=== PATIENT | male | born 1940 | race Caucasian/White ===

== ENCOUNTER → 2017-07-04 | Day surgery (SDC) | payer MEDICARE ==
[~2017-07-04] VITALS: Ht 165.1 cm; Wt 67.6 kg
[~2017-07-04] MED LIST: AMLO10TA2 PO; AMLO5TAB22 PO; ANAG.5 PO; ASPI-146 PO; BACITRACIN TOP OINT 15 GM TUBE ONE; BAYE325T3 PO; BUPIVACAINE/EPINEPHRINE 0.25% 50 ML VIAL ONE; CHLORHEXIDINE GLUCONATE 2 % 1 PACK (2 CLOTHS) TOPICAL PRN; COLL30OI3 TOP; DEXAMETHASONE SOD PHOS 4 MG/ML VIAL IV ONE; DO NOT ADM ANY ANTICOAGULANT DRUGS PRN; FISHCAP PO; GLYCOPYRROLATE 1 MG/5 ML SYRINGE IV PUSH ONE; HYDR500C PO; LACTATED RINGER'S 1000 ML IV PRN; LEVO50TA4 PO; LIDOCAINE HCL 1% PF 5 ML SYRINGE OTHER ONE; METO50TA PO; METOPROLOL TARTRATE 25 MG TAB PO PRN; ONDANSETRON HCL 4 MG/2 ML VIAL IV ONE; PHENYLEPH/NS 1000 MCG/10 ML SYR IV ONE; POVIDONE IODINE 5% (ANTISEPSIS KIT) 4 APPLICATIONS EACH NARE PRN; PROPOFOL 200 MG/20 ML AMP IV ONE; PROSCAP2 PO; PROSCAP5 PO; RANI150T PO; ROCURONIUM INJ 50 MG/5 ML SYRINGE IV PUSH ONE; ROSU1TAB6 PO; ROSU5 PO; SODIUM CHLORID 0.9% 500 ML IV PRN; TOPR100T15 PO; ceFAZolin 1,000 MG/NS 100 ML IV SCH; ePHEDrine/NS 25 MG/5 ML SYRINGE IV ONE; oxyCODONE/ACETAMINOPHEN 5 MG/325 MG TAB PO PRN
[2017-07-04 10:41] LABS: AUTOMATED NEUTROPHIL # 5.6 TH/MM3 (1.8-7.7); BASOPHIL # 0.2 TH/MM3 (0-0.2); BASOPHIL % 2.3 % (0.0-2.0); EOSINOPHIL # 0.1 TH/MM3 (0-0.4); EOSINOPHIL % 1.8 % (0.0-4.0); HEMATOCRIT 30.7 % (39.0-51.0); HEMOGLOBIN 10.4 GM/DL (13.0-17.0); LYMPH % 10.2 % (9.0-44.0); LYMPHOCYTE # 0.8 TH/MM3 (1.0-4.8); MEAN CELL VOLUME 93.2 FL (80.0-100.0); MEAN CORPUSCULAR HEMOGLOBIN 31.7 PG (27.0-34.0); MEAN PLATELET VOLUME 8.3 FL (7.0-11.0); MONO % 10.9 % (0.0-8.0); MONOCYTE # 0.8 TH/MM3 (0-0.9); NEUT % 74.8 % (16.0-70.0); PLATELET COUNT 619 TH/MM3 (150-450); RED BLOOD COUNT 3.29 MIL/MM3 (4.50-5.90); RED CELL DISTRIBUTION WIDTH 17.6 % (11.6-17.2); WHITE BLOOD COUNT 7.5 TH/MM3 (4.0-11.0)
[2017-07-04 14:16] VITALS: BP 137/71; PULSE 78; RESP 16; TEMP 97.7; O2SAT 100
--- NOTE | 2017-07-05 09:40 | EKG ---
Date Performed: 07/04/2017 Time Performed: 09:46:55 PTAGE: 77 years EKG: Sinus rhythm NORMAL ECG Since the prior tracing, there has been no significant change PREVIOUS TRACING : 08/10/2014 11.16 DOCTOR: Tomy Morales Interpretating Date/Time 07/05/2017 09:37:32
--- NOTE | 2017-07-06 20:32 | PD.OP ---
Operative Report Date of Surgery: Jul 04, 2017 Preoperative Diagnosis: (1) Melanoma of scalp Postoperative Diagnosis: (1) Melanoma of scalp Procedure: Wide local excision of right and left scalp melanomas in situ (55578, [id number]) Surgeon: Jed Sena Foot Caster(s): . Resident Surgeon: The patient is a 77-year-old male who presented with biopsy-proven melanomas in situ of the right and left posterior scalp. Risks benefits and alternative treatments were discussed. All questions answered. Patient expressed understanding. The patient elected to assume the risks of wide local excision of the 2 above lesions. Informed consent was obtained. Surgical sites were marked in the preoperative holding bay. Antibiotics were given on-call to the operating room. The patient was taken to the operating room. All pressure points were padded. A surgical timeout was performed. After the smooth induction of general anesthesia, the surgical site was instilled with quarter percent Marcaine with epinephrine. The surgical site was prepped and draped in the usual sterile fashion. Both lesions were excised with 5 mm circumferential margins. They were marked for orientation and sent for permanent pathology. A 3-0 PDS was used in each wound in a pursestring fashion to help close down the defects, as they were not able to be closed primarily. Hemostasis was ensured. Wounds were dressed with bacitracin Xeroform gauze 4 x 4 gauze and Tegaderm. The patient was awoken from anesthesia and arrived stable and doing well to the PACU. All needle sponge and instrument counts were correct 2. Jed Sena MD Jul 06, 2017 20:32
== END | disposition home or self-care (01) ==
LOC: HSDC 09:02
PROVIDERS: ATTEND Student in an Organized Health Care Education/Training Program
DX: C43.4 Malignant melanoma of scalp and neck (principal); L57.0 Actinic keratosis; I10 Essential (primary) hypertension; E78.00 Pure hypercholesterolemia, unspecified; E07.9 Disorder of thyroid, unspecified; Z87.891 Personal history of nicotine dependence; Z01.810 Encounter for preprocedural cardiovascular examination
CPT/HCPCS: 00300; 11623; 85025; 88305; 93005; J0690; J1100; J2370; J2405; J3010; J7120

== ENCOUNTER → 2017-07-11 | Day surgery (SDC) | payer MEDICARE ==
[~2017-07-11] VITALS: Ht 165.1 cm; Wt 67.0 kg
[~2017-07-11] MED LIST changes: +ACETAMINOPHEN 1000 MG/100 ML 0 ML IV ONE; +ACETAMINOPHEN 1000 MG/100 ML 100 ML IV ONE; -AMLO5TAB22 PO; -BAYE325T3 PO; -COLL30OI3 TOP; -DO NOT ADM ANY ANTICOAGULANT DRUGS PRN; +FAMOTIDINE 20 MG/2 ML VIAL ONE; -FISHCAP PO; -HYDR500C PO; +NEOSTIGMINE 5 MG/5 ML SYRINGE IV PUSH ONE; -ONDANSETRON HCL 4 MG/2 ML VIAL IV ONE; +ONDANSETRON HCL 4 MG/2 ML VIAL IV PUSH ONE; -PROSCAP2 PO; -PROSCAP5 PO; -ROSU5 PO; +SODIUM CHLORID 0.9% 500 ML INJ 500 ML IV ONE; -TOPR100T15 PO; +fentaNYL CITRATE 250 MCG/5 ML AMP ONE; -oxyCODONE/ACETAMINOPHEN 5 MG/325 MG TAB PO PRN
[2017-07-11 16:19] LABS: HEMOGLOBIN 10.3 GM/DL (13.0-17.0); MEAN CELL VOLUME 92.5 FL (80.0-100.0); MEAN CORPUSCULAR HEMOGLOBIN 29.8 PG (27.0-34.0); MEAN CORPUSCULAR HGB CONC 32.3 % (32.0-36.0); MEAN PLATELET VOLUME 8.6 FL (7.0-11.0); PLATELET COUNT 601 TH/MM3 (150-450); RED BLOOD COUNT 3.46 MIL/MM3 (4.50-5.90); RED CELL DISTRIBUTION WIDTH 16.7 % (11.6-17.2); WHITE BLOOD COUNT 8.9 TH/MM3 (4.0-11.0)
[2017-07-11 19:35] VITALS: PULSE 90
[2017-07-11 20:00] VITALS: PULSE 79; TEMP 97.8
[2017-07-11 20:20] VITALS: BP 125/51; PULSE 76; RESP 16; O2SAT 99
--- NOTE | 2017-07-12 16:19 | PD.OP ---
Operative Report Date of Surgery: Jul 11, 2017 Preoperative Diagnosis: (1) Scalp wound Postoperative Diagnosis: (1) Scalp wound Procedure: Complex wound closure of left posterior scalp wound 6.5 cm (33634) Adjacent tissue rearrangement of right posterior scalp wound over 60 cm ([id number]) Anesthesia: General Surgeon: Jed Sena [employer] Sales Director(s): . Operation and Findings: This is a 77-year-old male who presented to clinic for closure of his bilateral posterior scalp wounds. Risks benefits and alternative treatments were discussed. All questions answered. Patient expressed understanding. Patient elected to assume the risks of complex wound closure versus adjacent tissue rearrangement for closure of his bilateral scalp wounds. Informed consent was obtained. Surgical site was marked in the preoperative holding bay. Antibiotics were given on-call to the operating room. The patient was taken to the operating room. All pressure points were padded. A surgical timeout was performed. After the smooth induction of general anesthesia the surgical site was instilled with quarter percent Marcaine with epinephrine. The surgical site was prepped and draped in usual sterile fashion. Because these lesions were placed next to each other, they confounded attempts at closure. Initially , both lesions were widely undermined in a subgaleal plane. The left posterior scalp wound was close, but would not close without excessive tension. The galea was brought as close to apposition as possible. Following this skin flaps were raised in a separate plane from the galea flaps. This allowed skin apposition. The lesion was therefore closed with retention sutures including interrupted 2-0 3-0 and 4-0 nylons in a vertical mattress fashion. Following this attention was turned to the right posterior scalp wound. Double opposing sagittally oriented rotation flaps were designed. After extensive undermining, galeal scoring, and back cutting, these flaps were able to be brought into apposition. They were secured with interrupted 2-0 and 3-0 interrupted nylons in a vertical mattress fashion. The surgical site was cleaned and dressed with bacitracin Xeroform fluffs an ABD pads and a craniotomy stockinette. The patient was awoken from anesthesia and arrived stable doing well to the PACU. All needle sponge and instrument counts were correct 2. Jed Sena MD Jul 12, 2017 16:19
== END | disposition home or self-care (01) ==
LOC: PHSDC 13:18
PROVIDERS: ATTEND Student in an Organized Health Care Education/Training Program
DX: S01.00XA Unspecified open wound of scalp, initial encounter (principal); C43.4 Malignant melanoma of scalp and neck; I10 Essential (primary) hypertension; Z87.891 Personal history of nicotine dependence
CPT/HCPCS: 00300; 13121; 14301; 36415; 85027; J0131; J0690; J1100; J2370; J2405; J2710; J3010; J7040; J7120